=== PATIENT | female | born 1980 | race Caucasian/White ===

== ENCOUNTER 2022-01-08 01:20 | Emergency (ER) | payer BC ==
[~2022-01-08] VITALS: Ht 154.9 cm; Wt 129.0 kg
--- NOTE | 2022-01-08 01:46 | ED Chest Pain ---
General Stated Complaint: CHEST PAIN History of Present Illness Date Seen by Provider: Jan 08, 2022 Time Seen by Provider: 01:35 Initial Comments 41-year-old female presents with chest pain. She reports the pain is located In lower substernal epigastric region. States the pain goes to both sides under her breast/upper abdomen and to her back. She had an episode yesterday morning around 815 and lasted about 30 minutes. Around 12:10 she had a second episode. She has very minimal pain at this time but just prior to being here she reports she has significant pain. Patient complains of shortness of breath associated with the pain. No diaphoresis., No nausea or vomiting. She reports she has a history of GERD but this was significantly different. She describes the pain is almost like a "muscle cramp" Allergies and Home Medications Allergies Coded Allergies: amoxicillin (Verified Allergy, Unknown, 01/08/22) clavulanic acid (Verified Allergy, Unknown, 01/08/22) Patient Home Medication List Home Medication List Reviewed: Yes Bupropion HCl (Bupropion Xl) 300 Mg Tab.er.24h, 300 MG PO DAILY, (Reported) Entered as Reported by: SILVINO LICONA on 01/08/22231 Last Action: New Order Pantoprazole Sodium (Pantoprazole Sodium) 40 Mg Tablet.dr, 40 MG PO DAILY, (Reported) Entered as Reported by: SILVINO LICONA on 01/08/22231 Last Action: New Order Review of Systems Review of Systems Constitutional: No chills, No dizziness, No fever EENTM: No Symptoms Reported Respiratory: Denies Cough, Denies Shortness of Air Cardiovascular: Chest Pain; Denies Edema, Denies Irregular Heart Rate, Denies Lightheadedness, Denies Palpitations Gastrointestinal: See HPI; Denies Diarrhea, Denies Nausea, Denies Vomiting Genitourinary: No Symptoms Reported Musculoskeletal: no symptoms reported Skin: no symptoms reported Psychiatric/Neurological: No Symptoms Reported Endocrine: No Symptoms Reported Physical Exam Vital Signs Vital Signs - First Documented 01/08/22 01:24 Temp 35.8 Pulse 78 Resp 15 B/P (MAP) 187/95 (125) Pulse Ox 98 O2 Delivery Room Air Capillary Refill : Height, Weight, BMI Height: '" Weight: lbs. oz. 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 Norm as Tested Skin: Normal Color, Warm/Dry Progress/Results/Core Measures Results/Orders Lab Results Laboratory Tests Test 01/08/22 01:50 Range/Units White Blood Count 12.5 H 4.3-11.0 10^3/uL Red Blood Count 4.63 3.80-5.11 10^6/uL Hemoglobin 13.0 11.5-16.0 g/dL Hematocrit 40 35-52 % Mean Corpuscular Volume 87 80-99 fL Mean Corpuscular Hemoglobin 28 25-34 pg Mean Corpuscular Hemoglobin Concent 32 32-36 g/dL Red Cell Distribution Width 14.2 10.0-14.5 % Platelet Count 285 130-400 10^3/uL Mean Platelet Volume 10.6 9.0-12.2 fL Sodium Level 136 135-145 MMOL/L Potassium Level 3.9 3.6-5.0 MMOL/L Chloride Level 103 98-107 MMOL/L Carbon Dioxide Level 20 L 21-32 MMOL/L Anion Gap 13 5-14 MMOL/L Blood Urea Nitrogen 13 7-18 MG/DL Creatinine 0.63 0.60-1.30 MG/DL Estimat Glomerular Filtration Rate 114 BUN/Creatinine Ratio 21 Glucose Level 101 70-105 MG/DL Calcium Level 8.9 8.5-10.1 MG/DL Corrected Calcium 9.1 8.5-10.1 MG/DL Magnesium Level 2.0 1.6-2.4 MG/DL Total Bilirubin 0.2 0.1-1.0 MG/DL Aspartate Amino Transf (AST/SGOT) 34 5-34 U/L Alanine Aminotransferase (ALT/SGPT) 36 0-55 U/L Alkaline Phosphatase 110 40-136 U/L Troponin I < 0.30 <0.30 NG/ML C-Reactive Protein 2.27 H <0.50 MG/DL Total Protein 7.6 6.4-8.2 GM/DL Albumin 3.8 3.2-4.5 GM/DL Lipase 29 8-78 U/L My Orders Orders - HAYDEE NUNEZ L DO Cbc No Diff (01/08/22 01:51) Comprehensive Metabolic Panel (01/08/22 01:51) Lipase (01/08/22 01:51) Magnesium (01/08/22 01:51) Crp Fs (01/08/22 01:51) Troponin I Fs (01/08/22 01:51) Ekg Tracing (01/08/22 01:51) Monitor-Rhythm Ecg Trace Only (01/08/22 01:51) Chest 1 View Ap/Pa Only (01/08/22 01:51) Aspirin Chewable Tablet (Baby Aspirin Ch (01/08/22 02:00) Famotidine Injection (Pepcid Injection) (01/08/22 01:55) Medications Given in ED Current Medications Medications Dose Ordered Sig/Enrique Route Start Time Stop Time Status Last Admin Dose Admin Aspirin 324 mg ONCE ONCE PO 01/08/22 02:00 01/08/22 02:01 DC 01/08/22 02:06 324 MG Vital Signs/I&O 01/08/22 01/08/22 01:24 03:02 Temp 35.8 35.6 Pulse 78 84 Resp 15 18 B/P (MAP) 187/95 (125) 147/79 Pulse Ox 98 98 O2 Delivery Room Air Room Air Progress Progress Note : Progress Note Patient with more epigastric pain that chest pain. Patient with negative EKG negative troponin. Patient had episode yesterday morning which would put the troponin out 12 hours after that initial episode with no elevation. I had a l rachel discussion with patient regarding repeat troponin after 2 hours. At this time she deferred that further testing. She reports that she is also had some increased reflux symptoms and had an episode on Wednesday when she awoke with a bad taste in her mouth. I suspect she is having increased reflux with may be some gastritis and early peptic ulcer disease. I recommend she start Pepcid twice a day. That if the pain returns she follows with her primary care provider and considers both an EGD and right upper quadrant ultrasound since she is does have some mild tenderness in the right upper quadrant on palpation. She will return if her symptoms become significantly worse. Patient stable and discharged home. Initial ECG Impression Date: Jan 08, 2022 Initial ECG Impression Time: 01:41 Initial ECG Rate: 83 Initial ECG Rhythm: Normal Sinus (83) Initial ECG Intervals: Normal Initial ECG Impression: Normal Comment normal ekg Departure Impression Primary Impression: Chest pain Qualified Codes: R07.89 - Other chest pain Disposition: 01 HOME, SELF-CARE Condition: Stable Departure-Patient Inst. Referrals: [facility] (PCP/Family) Primary Care Physician Patient Instructions: Chest Pain That Is Not Caused by the Heart (DC), Acid Reflux and GERD in Adults (DC) Add. Discharge Instructions: Follow-up with your primary care provider or return to ER if symptoms become more frequent. Consider adding Pepcid twice daily x5 days along with some Maalox as needed. Return to the ER with any concerns HAYDEE NUNEZ DO Jan 08, 2022 01:46
[2022-01-08] MEDS ORDERED: FAMOTIDINE 20MG/2ML IV (PEPCID) IV STA (01:55)
[2022-01-08] MEDS ORDERED: ASPIRIN 81 MG CHEW (CHILDREN'S ASA) PO ONE (02:00)
[2022-01-08 02:22] LABS: HEMATOCRIT 40 % (35-52); MEAN CORPUSCULAR HEMOGLOBIN 28 pg (25-34); MEAN CORPUSCULAR HGB CONC 32 g/dL (32-36); MEAN CORPUSCULAR VOLUME 87 fL (80-99); MEAN PLATELET VOLUME 10.6 fL (9.0-12.2); PLATELET COUNT 285 10^3/uL (130-400); WHITE BLOOD COUNT 12.5 10^3/uL (4.3-11.0)
[2022-01-08] MEDS ORDERED: BUPR300T98 PO (02:32)
[2022-01-08] MEDS ORDERED: PANT40TA52 PO (02:32)
[2022-01-08 02:34] LABS: CARBON DIOXIDE 20 MMOL/L (21-32); CHLORIDE 103 MMOL/L (98-107); POTASSIUM 3.9 MMOL/L (3.6-5.0); SODIUM 136 MMOL/L (135-145)
[2022-01-08 02:35] LABS: ALANINE AMINOTRANSFERASE 36 U/L (0-55); ALBUMIN 3.8 GM/DL (3.2-4.5); ALKALINE PHOSPHATASE 110 U/L (40-136); BILIRUBIN,TOTAL 0.2 MG/DL (0.1-1.0); BUN/CREATININE RATIO 21; CALCIUM 8.9 MG/DL (8.5-10.1); CREATININE SERUM 0.63 MG/DL (0.60-1.30); GFR ESTIMATED 114; GLUCOSE 101 MG/DL (70-105); LIPASE 29 U/L (8-78); TOTAL PROTEIN 7.6 GM/DL (6.4-8.2)
[2022-01-08 03:02] VITALS: BP 147/79
--- NOTE | 2022-01-08 06:22 | Diagnostic Imaging Report ---
INDICATION: Chest pain. COMPARISON: None FINDINGS: Single frontal view of the chest demonstrates normal heart size and pulmonary vascularity. The lungs are well aerated and clear. No large pleural effusion or pneumothorax is seen. The visualized osseous structures show no acute abnormalities. IMPRESSION: 1. No acute cardiopulmonary process. Dictated by: Dictated on workstation # [id number]
== END 2022-01-08 03:02 | disposition home or self-care (01) ==
LOC: ER FS 01:31
DX: R07.2 Precordial pain (principal); E66.9 Obesity, unspecified; Z28.310 Unvaccinated for COVID-19
CPT/HCPCS: 36415; 71045; 80053; 83690; 83735; 84484; 85027; 86141; 93005; 93041

== ENCOUNTER 2022-01-26 05:42 | Outpatient (CLI) | payer BC ==
[~2022-01-26] VITALS: Ht 157.4 cm; Wt 126.6 kg
[~2022-01-26 05:42] MED LIST: BUPR300T98 PO; PANT40TA52 PO
[2022-01-26] MEDS ORDERED: FAMO40TA72 PO (10:39)
[2022-01-26] MEDS ORDERED: SEMA0.25 SQ (10:39)
[2022-01-28] MEDS ORDERED: ACHYD1T PO (13:55)
== END 2022-01-26 10:46 | disposition home or self-care (01) ==
LOC: PREOP 05:42
PROVIDERS: ATTEND Surgery
DX: Z01.818 Encounter for other preprocedural examination (principal)

== ENCOUNTER 2022-01-28 10:55 | Day surgery (SDC) | payer BC ==
[2022-01-28] VITALS (11 sets, daily range): BP systolic 101–137; BP diastolic 61–85
[~2022-01-28] VITALS: Ht 157.4 cm; Wt 126.6 kg
[~2022-01-28 10:55] MED LIST changes: +FAMO40TA72 PO; +SEMA0.25 SQ
[2022-01-28] MEDS: LACTATED RINGERS 1,000 ML IV PRN ×2 (11:30→13:27)
[2022-01-28] MEDS ORDERED: ceFAZolin INJECTION 2,000 MG in NS (IVPB) 50 ML IV ONE (11:45)
--- NOTE | 2022-01-28 11:59 | Progress Note-Pre Operative ---
Pre-Operative Progress Note Date of Available H&P: Jan 22, 2022 Date H&P Reviewed: Jan 28, 2022 Time H&P Reviewed: 11:56 History & Physical: H&P Reviewed, Patient Examed, No changes noted Pre-Operative Diagnosis: Cholecystitis/Cholelithiasis SITA HEAD DO Jan 28, 2022 11:59
[2022-01-28] MEDS ORDERED: MIDAZOLAM 2 MG/2 ML (VERSED) VIAL ONE (12:35)
[2022-01-28] MEDS ORDERED: ROCURONIUM 10 MG/ML 5 ML SYRINGE IV ONE (12:35)
[2022-01-28] MEDS ORDERED: GLYCOPYRROLATE 0.2 MG/ML (ROBINUL) 2 ML VIAL ONE (12:35)
[2022-01-28] MEDS ORDERED: LIDOCAINE PF 2% 5 ML (XYLOCAINE) VIAL ONE (12:35)
[2022-01-28] MEDS ORDERED: ONDANSETRON 4 MG/2 ML (SDV) Z0FRAN ONE (12:35)
[2022-01-28] MEDS ORDERED: fentaNYL INJ 100 MCG/2 ML AMP ONE (12:35)
[2022-01-28] MEDS ORDERED: proPOfol 200 MG/20 ML (DIPRIVAN) VIAL IV ONE (12:35)
[2022-01-28] MEDS ORDERED: LIDOCAINE/EPI 1%-1:100,000 (XYLOCAINE) 10 ML ONE (12:36)
[2022-01-28] MEDS ORDERED: NEOSTIGMINE (BLOXIVERZ ) 1 MG/1ML 10 ML VIAL ONE (13:39)
[2022-01-28] MEDS ORDERED: SEVOFLURANE (ULTANE) 15 ML INHAL SOLN ONE (13:42)
--- NOTE | 2022-01-28 13:54 | Progress Note-Post Operative ---
Post-Operative Progess Note Surgeon (s)/Television Script Writer (s) Surgeon SITA HEAD DO Television Script Writer: Reza Pre-Operative Diagnosis Cholecystitis/Cholelithiasis Post-Operative Diagnosis same Procedure & Operative Findings Date of Procedure 01/28/22 Procedure Performed/Findings PROCEDURE: Laparoscopic cholecystectomy with intraoperative cholangiogram. COMPLICATIONS: None. PROCEDURE: The patient was taken to the operating suite and was prepped and draped in sterile fashion. A surgical pause was performed. Just superior to the umbilicus, a 12 mm incision was made. Dissection was taken down to the fascia, which was then scored and grasped with a Betty and the abdomen was then entered. A 0 Vicryl suture was placed in a [id number] fashion and a Yadav trocar was placed and secured. Pneumoperitoneum was achieved. A 5mm trochar place in the subxyphoid and 2 in the right upper quadrant. The gallbladder was then grasped and elevated in the superior direction. There were adhesions to the gallbladder (which usually indicates previous attacks) taken down with cautery. Encountered the cystic artery first and place clips; one proximal and two distal and then cut it to get it out of the way. Finally able to grab down at José's pouch and pull in the infero-lateral direction. Dissected out the cystic duct and a clip was placed on the distal portion of the cystic duct which was then partially transected. An arrow catheter was inserted into the duct. The cholangiogram was then performed; the duct was very dilated and it appeared to go slowly into the small bowel. It almost looked blocked, but I think it was just the angle of the Flourscopy; contrast made its way into the duodenum. However, when catheter removed the fluid did come rushing back out of the cystic duct. Clips were placed on proximal portion of the cystic duct and then the duct was then transected. Hook cautery was used to dissect the gallbladder from the gallbladder fossa achieving hemostasis. The gallbladder was placed in an Endobag and removed through the 12 mm trocar site. The abdomen was then reinspected. Copious amounts of irrigation were used to irrigate the abdomen and there were no signs of active bleeding. Hemostasis had been achieved. The 12 mm fascial defect was then closed with 0 Vicryl suture that had been placed in a figure-of- eight fashion. The abdomen was then desufflated, the trocars were removed. The abdomen was then washed and dried. The skin was then closed using 4-0 Monocryl in a subcuticular fashion. The abdomen was washed and dried and Skin Affix was place over incisions. Patient tolerated the procedure well without any complications and was taken to the recovery room in stable condition. Dr. Cobb assisted on this case helping to make incisions, close incisions, identify anatomy and hold the anatomy out of the way. Anesthesia Type GET Estimated Blood Loss Estimated blood loss (mL): scant Specimens/Packing Specimens Removed GB and contents SITA HEAD DO Jan 28, 2022 13:54
[2022-01-28] MEDS ORDERED: ACHYD1T PO (13:55)
--- NOTE | 2022-01-28 13:56 | Discharge Inst-Surgical ---
Discharge Inst-Surgical Depart Medication/Instructions New, Converted or Re-Newed RX: Transmitted to Pharmacy Patient Instructions Follow up Appt: Make appointment for 1 week. [phone] Instructions: No lifting greater than 20 pounds. No strenuous activity. May shower in 24 hours, no tub bath or soaking. Use incentive spirometer at home as directed. No Smoking Skin/Wound Care: May remove bandages in am. You need to leave the Dermabond on incision it will fall off on it's own. Symptoms to Report: Appetite Changes, Extremity Discoloration, Numbness/Tingling, Swelling Increased, Bleeding Excessive, Eyesight Changes, Pain Increased, Urine Color Change, Constipation(Persistent), Fever over 101 degree F, Pain/Pressure in chest, Urinating Difficulty, Cough Up/Vomit Blood, Heart Beat Irreg/Pounding, Pain/Pressure in jaw, Cramps in feet or legs, Lightheadedness, Pain/Pressure in shoulder, Diarrhea(Persistent), Memory Changes Suddenly, Questions/Concerns, Weight gain consecutive days, Dizziness/Fainting, Nausea/Vomiting, Shortness of Breath, Weight gain over 2 pounds If questions or concerns contact your physician Or seek help at emergency department. Activity Activity as Tolerated: Yes Activity Instructions: Avoid Stress to Incision Driving Instructions: No Driving/Refer to Dr. Heart Discharge Diet: Avoid Fatty Foods, Low Fat/Low Cholesterol If Any Problems/Questions/Issu: Contact Your Physician, Go to Emergency Room Skin/Wound Care Infection Signs and Symptoms: Increased Redness, Foul Odor of Wound, Increased Drainage, Skin Itchy or Has a Rash, Increased Swelling, Temperature Above 101 F Bathing Instructions: Shower Stitches/Agustin/Dermabond Dis: SITA Hansen DO Jan 28, 2022 13:56
--- NOTE | 2022-01-28 13:59 | Anesthesia-General Post-Op ---
General Patient Condition Mental Status/LOC: Same as Preop Cardiovascular: Satisfactory Nausea/Vomiting: Absent Respiratory: Satisfactory Pain: Controlled Complications: Absent Post Op Complications Complications None Follow Up Care/Instructions Patient Instructions None needed. Anesthesia/Patient Condition Patient Condition Patient is doing well, no complaints, stable vital signs, no apparent adverse anesthesia problems. No complications reported per nursing. SHAINA PAINTER CRNA Jan 28, 2022 13:59
[2022-01-28] MEDS ORDERED: ONDANSETRON 4 MG/2 ML (SDV) Z0FRAN IVP PRN (14:00)
[2022-01-28] MEDS ORDERED: fentaNYL INJ 100 MCG/2 ML AMP IVP ONE (14:00)
--- NOTE | 2022-01-28 18:48 | Diagnostic Imaging Report ---
INDICATION: Intraoperative cholangiogram. COMPARISON: None. TOTAL FLUOROSCOPY TIME: 24 seconds. TOTAL NUMBER OF FLUOROSCOPIC IMAGES SAVED: 137. FINDINGS: Multiple digital subtraction and image intensifier views of the right upper abdominal quadrant were obtained during cholangiogram. Images provided show contrast opacifying the common bile duct and refluxing into the left and right hepatic ducts. There is prominent abnormal dilatation of the common bile duct with suggestion of relative significant transition point near the ampulla. Please note, interpreting radiologist was not present during the procedure. IMPRESSION: Fluoroscopic guidance provided intraoperatively, as above. Dictated by: Dictated on workstation # [id number]
== END 2022-01-28 15:56 | disposition home or self-care (01) ==
LOC: SDC 10:55
PROVIDERS: ATTEND Surgery
DX: K80.10 Calculus of gallbladder with chronic cholecystitis without obstruction (principal); E66.01 Morbid (severe) obesity due to excess calories; Z68.43 Body mass index [BMI] 50.0-59.9, adult; K21.9 Gastro-esophageal reflux disease without esophagitis; Z79.899 Other long term (current) drug therapy; Z28.310 Unvaccinated for COVID-19
CPT/HCPCS: 76000; 88304